=== PATIENT | male | born 1985 | race Caucasian/White ===

== ENCOUNTER 2018-04-28 21:14 | Emergency (ER) | payer BC ==
--- NOTE | 2018-04-28 21:16 | ER Report ---
History and Physical Time Seen By MD: 21:15 HPI/ROS CHIEF COMPLAINT: Left index finger laceration HISTORY OF PRESENT ILLNESS: Patient is a 32-year-old male here with active bleeding from the left index finger laceration after cutting his finger accidentally with a knife which is used to clean the carcass of an animal that he had hunted. Patient reports that the laceration occurred at approximately 1830. Patient is up-to-date on his tetanus immunization. REVIEW OF SYSTEMS: Constitutional: No fever, no chills. Musculoskeletal: + left index finger pain, bleeding Skin: + 2 cm laceration to left index finger Neurological: NV intact distal to wound site Allergies: Coded Allergies: No Known Drug Allergies (Unverified , 04/28/18) Home Meds Active Scripts Doxycycline Hyclate (DOXYCYCLINE HYCLATE) 100 Mg Capsule, 100 MG PO BID for 5 Days, #10 CAPSULE Prov:WILKSNIKKI Schwarz DO 04/28/18 Constitutional Vital Sign - Last 24 Hours 04/28/18 04/28/18 04/28/18 04/28/18 21:16 21:17 21:29 21:30 Temp 99.4 Pulse 98 106 Resp 14 B/P (MAP) 159/106 (123) 159/106 146/89 (108) Pulse Ox 97 96 O2 Delivery Room Air 04/28/18 04/28/18 04/28/18 21:44 21:59 22:00 Pulse 86 ??? B/P (MAP) 141/88 (105) Pulse Ox 95 Physical Exam General Appearance: The patient is alert, has no immediate need for airway protection and no signs of toxicity. No acute distress Neurological: Neurovascularly intact distal to the injury site Skin: 2 cm laceration to the left index finger medial aspect Musculoskeletal: Extremities: + Tenderness on palpation of the left index finger around the wound site DIFFERENTIAL DIAGNOSIS: After history and physical exam differential diagnosis was considered for laceration, tendon involvement, neurovascular compromise Medical Decision Making ED Course/Re-evaluation ED Course Patient is a 32-year-old male here status post laceration with a cutting knife after hunting an elk. Patient active bleeding from the left index finger so a finger tourniquet was applied. Digital block was performed using 2% lidocaine. 4-0 Ethilon 5 sutures were used to close the laceration with close approximation after cleaning the wound. Patient was advised to have the sutures removed in 7-10 days. Patient was stable at time of discharge. Procedure A digital block was performed using approximately 4 mL of 2% lidocaine. The 2 cm laceration of the left index finger was cleaned using Shur-Clens and the laceration was closed using 4-0 Ethilon sutures 5 for close approximation. Patient was hemodynamically stable, hemostasis was achieved and the patient tolerated the procedure well. Decision to Disposition Date: Apr 28, 2018 Decision to Disposition Time: 22:00 Depart Departure Latest Vital Signs Vital Signs Date Time Temp Pulse Resp B/P (MAP) Pulse Ox O2 Delivery O2 Flow Rate FiO2 04/28/18 22:00 141/88 (105) 04/28/18 21:59 ??? 04/28/18 21:44 95 04/28/18 21:17 99.4 14 Room Air Impression: Primary Impression: Laceration Condition: Improved Disposition: HOME OR SELF-CARE New Scripts Doxycycline Hyclate (DOXYCYCLINE HYCLATE) 100 Mg Capsule 100 MG PO BID for 5 Days, #10 CAPSULE Prov: NIKKI WILKS DO 04/28/18 Patient Instructions: Finger Laceration (ED) Additional Instructions: Please take one tablet twice daily of doxycycline for 5 days for bacterial prophylaxis. 5 sutures were used to close your laceration which will need to be removed in 7-10 days. Please return if you develop swelling, redness, fevers, worsening pain around the site of the laceration. NIKKI WILKS DO Apr 28, 2018 21:16
[2018-04-28] MEDS ORDERED: LIDOCAINE 2% IV 100 MG/5ML SYR IVP ONE (21:25)
[2018-04-28] MEDS ORDERED: DOXY-181 PO (21:49)
[2018-04-28] MEDS ORDERED: DOXYCYCLINE HYCL 100 MG TAB PO ONE (21:50)
[2018-04-28 22:00] VITALS: BP 141/88
[2018-04-28] MEDS ORDERED: DOXYCYCLINE HYCL 100 MG TAB TH PO ONE (22:05)
== END 2018-04-28 22:12 | disposition home or self-care (01) ==
LOC: ER 21:30
DX: S61.211A Laceration without foreign body of left index finger without damage to nail, initial encounter (principal); W26.0XXA Contact with knife, initial encounter
CPT/HCPCS: 12001; 96374; 99283; J2001